=== PATIENT | female | born 1975 | race American Indian/Alaskan Native ===

== ENCOUNTER 2017-02-19 12:40 | Emergency (ER) | payer MEDICAID, OTHER ==
[2017-02-19 12:45] VITALS: BMI 20.3
[2017-02-19 12:47] VITALS: TEMP 98.7
[2017-02-19] MEDS ORDERED: Sodium Chloride 0.9% 1,000 ML IV ONE (13:35)
[2017-02-19] MEDS ORDERED: Sodium Chloride 0.9% 50 ML IV ONE (14:09)
[2017-02-19 14:10] LABS: RBC URINE < 1 /hpf (0-3); URINE BILIRUBIN NEGATIVE (NEGATIVE); URINE BLOOD NEGATIVE (NEGATIVE); URINE COLOR Yellow (YELLOW); URINE GLUCOSE (UA) NORMAL (Normal); URINE KETONE NEGATIVE (NEGATIVE); URINE LEUKOCYTE ESTERASE NEG Leu/uL (Negative); URINE PROTEIN NEGATIVE (NEGATIVE); URINE UROBILINOGEN NORMAL mg/dL (0.2-1.0); WBC URINE 3 /hpf (0-5)
--- NOTE | 2017-02-19 14:13 | CT ---
PROCEDURE: CT HEAD WITHOUT CONTRAST. HISTORY: R/O Bleed COMPARISON: None available. TECHNIQUE: Axial computed tomography images were obtained through the head/brain without intravenous contrast. Radiation dose: Total exam DLP = 799.58 mGy-cm. This CT exam was performed using one or more of the following dose reduction techniques: Automated exposure control, adjustment of the mA and/or kV according to patient size, and/or use of iterative reconstruction technique. FINDINGS: HEMORRHAGE: No intracranial hemorrhage. BRAIN: No mass effect or edema. The silva-white matter differentiation appears intact. Please note that MRI with diffusion imaging is more sensitive in the detection of acute ischemic event. VENTRICLES: No hydrocephalus. CALVARIUM: Unremarkable. PARANASAL SINUSES: Unremarkable as visualized. No significant inflammatory changes. MASTOID AIR CELLS: Unremarkable as visualized. No inflammatory changes. OTHER FINDINGS: None. IMPRESSION: No acute intracranial pathology identified.
[2017-02-19 14:15] LABS: BASO # 0.1 K/uL (0.0-0.2); BASO % 0.9 % (0.0-2.0); EOS # 0.1 K/uL (0.0-0.7); EOS % 0.9 % (0.0-4.0); HEMATOCRIT 40.4 % (34.0-47.0); LYMPH # 1.8 K/uL (1.0-4.3); LYMPH % 18.5 % (20.0-40.0); MEAN CELL VOLUME 80.1 fL (81.0-99.0); MEAN CORPUSCULAR HGB CONC 32.4 g/dL (33.0-37.0); MEAN PLATELET VOLUME 7.7 fL (7.2-11.7); MONO # 0.7 K/uL (0.0-0.8); MONO % 6.8 % (0.0-10.0); RED CELL DISTRIBUTION WIDTH 14.1 % (11.5-14.5); WHITE BLOOD COUNT 9.9 K/uL (4.8-10.8)
[2017-02-19 14:22] LABS: CHLORIDE 100 mmol/L (98-107)
[2017-02-19 14:23] LABS: POTASSIUM 3.7 mmol/L (3.6-5.2); SODIUM 140 mmol/L (132-148)
[2017-02-19 14:25] LABS: ALB/GLOB RATIO 1.2 (1.0-2.1); ALKALINE PHOSPHATASE 61 U/L (38-126); ALT/SGPT 21 U/L (9-52); AST/SGOT 20 U/L (14-36); BILIRUBIN,TOTAL 0.6 mg/dL (0.2-1.3); BLOOD UREA NITROGEN 7 mg/dL (7-17); CARBON DIOXIDE 26 mmol/L (22-30); GFR AFRICAN-AMERICAN > 60; GLUCOSE,RANDOM 86 mg/dL (65-105); TOTAL PROTEIN 8.2 g/dL (6.3-8.3)
[2017-02-19 14:26] LABS: CALCIUM 9.2 mg/dl (8.6-10.4)
--- NOTE | 2017-02-19 14:52 | C.PDOC ---
History Of Present Illness 41 y/o female presents to the Ed with complains of frontal headache x4 days with associated photophobia. Pt denies nausea, vomiting, dizziness, fever or any other complaints. Pt took Excedrin with mild relief. Pt reports history of headaches when younger, states this is worse and she "feels funny". Pt also reports hx HTN, ran out of medications 2 days ago. Time Seen by Provider: 02/19/17 13:31 Chief Complaint (Nursing): Headache History Per: Patient History/Exam Limitations: no limitations Onset/Duration Of Symptoms: Days Current Symptoms Are (Timing): Still Present Severity: Moderate Associated Symptoms: Photophobia. denies: Nausea, Vomiting Recent travel outside of the [place]: No Past Medical History Reviewed: Historical Data, Nursing Documentation, Vital Signs Vital Signs: Last Vital Signs Temp 98.7 F 02/19/17 12:46 Pulse 89 02/19/17 15:19 Resp 20 02/19/17 15:19 BP 145/81 02/19/17 15:19 Pulse Ox 99 02/19/17 17:29 - Medical History PMH: Asthma, HTN Family History: States: CAD, Diabetes, Hypertension - Social History Hx Tobacco Use: Yes Hx Alcohol Use: Yes Hx Substance Use: No - Immunization History Hx Tetanus Toxoid Vaccination: No Hx Influenza Vaccination: No Hx Pneumococcal Vaccination: No Review Of Systems Except As Marked, All Systems Reviewed And Found Negative. Constitutional: Negative for: Fever Eyes: Positive for: Other (photophobia) Gastrointestinal: Negative for: Nausea, Vomiting Neurological: Positive for: Headache. Negative for: Dizziness Physical Exam - Physical Exam Appears: Non-toxic, No Acute Distress Skin: Warm, Dry, No Rash Head: Atraumatic, Normacephalic Eye(s): bilateral: Normal Inspection, PERRL, EOMI Ear(s): Bilateral: Normal Nose: Normal Oral Mucosa: Moist Throat: Normal, No Erythema, No Exudate Neck: Normal ROM, Supple Chest: Symmetrical Cardiovascular: Rhythm Regular Respiratory: Normal Breath Sounds Extremity: Bilateral: Atraumatic Neurological/Psych: Oriented x3, Normal Speech, Normal Cognition, Normal Cranial Nerves, Normal Motor, Normal Sensation Gait: Steady ED Course And Treatment - Laboratory Results Result Diagrams: 02/19/17 14:11 02/19/17 14:11 O2 Sat by Pulse Oximetry: 99 (on RA) Pulse Ox Interpretation: Normal Progress Note: Plan: reglan, toradol, fluids. On reassessment, patient is resting comfortably, is tolerating PO, and pain has improved. HEadache improved. Patient has no neurologic deficit, photophobia, rash, fever, or nuchal rigidity. Patient was instructed to follow up with physician/clinic in 1 -2 days. Disposition - Disposition Referrals: Sylvester Borja MD [Staff Provider] - Disposition: HOME/ ROUTINE Disposition Time: 15:15 Condition: STABLE Additional Instructions: Follow up with primary medical doctor in 1-3 days without fail for further evaluation. Take medications as prescribed. Return to the emergency department at any time if symptoms persist or worsen. Prescriptions: Acetaminophen/Butalbital/Caf [Fioricet] 1 tab PO TID PRN #12 tab PRN Reason: Headache Lisinopril [Zestril] 10 mg PO DAILY #14 tab Instructions: Acute Headache (ED) - Clinical Impression Clinical Impression: Headache, HTN (hypertension) - PA / DIETETIC TECHNICIAN REGISTERED / Resident Statement MD/DO has reviewed & agrees with the documentation as recorded. - Scribe Statement The provider has reviewed the documentation as recorded by the Adriannaibjaziel Osborn All medical record entries made by the Robby were at my direction and personally dictated by me. I have reviewed the chart and agree that the record accurately reflects my personal performance of the history, physical exam, medical decision making, and the department course for this patient. I have also personally directed, reviewed, and agree with the discharge instructions and disposition.
[2017-02-19 15:20] VITALS: BP 145/81; PULSE 89; RESP 20
[2017-02-19 15:34] VITALS: O2SAT 99
== END 2017-02-19 16:02 | disposition home or self-care (01) ==
LOC: C.ER 12:40
DX: I10 Essential (primary) hypertension (principal); R51 Headache
CPT/HCPCS: 70450; 80053; 81001; 82948; 84703; 85025; 96361; 96374; 96375; 99285; J1885; J2765; J7040

== ENCOUNTER 2017-05-02 08:53 | Inpatient (IN) | payer OTHER ==
[2017-05-02 08:53] VITALS: BMI 20.3
[2017-05-02] MEDS ORDERED: Belladonna-Phenobarbital PO STA (09:30)
[2017-05-02] MEDS ORDERED: Lidocaine 2% Viscous 100 ml PO STA (09:30)
[2017-05-02] MEDS ORDERED: Aluminum Hydroxide/Magnesium Hydroxide Susp (30 mL) PO STA (09:30)
[2017-05-02] MEDS ORDERED: Sodium Chloride 0.9% 1,000 ML IV ONE ×2 (09:30→14:37)
[2017-05-02] MEDS ORDERED: Aluminum Hydroxide/Magnesium Hydroxide Susp (30 mL) ONE (09:41)
[2017-05-02] MEDS ORDERED: Belladonna-Phenobarbital ONE (09:41)
[2017-05-02] MEDS ORDERED: Sodium Chloride 0.9% 1,000 ML ONE ×2 (09:41→14:49)
[2017-05-02 09:53] LABS: BASO # 0.1 K/uL (0.0-0.2); BASO % 0.6 % (0.0-2.0); EOS % 0.2 % (0.0-4.0); HEMATOCRIT 38.5 % (34.0-47.0); LYMPH # 0.8 K/uL (1.0-4.3); LYMPH % 6.6 % (20.0-40.0); MEAN CELL VOLUME 80.1 fL (81.0-99.0); MEAN CORPUSCULAR HEMOGLOBIN 26.2 pg (27.0-31.0); MEAN CORPUSCULAR HGB CONC 32.7 g/dL (33.0-37.0); MEAN PLATELET VOLUME 7.6 fL (7.2-11.7); MONO # 0.4 K/uL (0.0-0.8); MONO % 3.2 % (0.0-10.0); PLATELET COUNT 347 K/uL (130-400); RED CELL DISTRIBUTION WIDTH 13.6 % (11.5-14.5); WHITE BLOOD COUNT 11.5 K/uL (4.8-10.8)
[2017-05-02 10:03] LABS: RBC URINE 3 /hpf (0-3); URINE BILIRUBIN NEGATIVE (NEGATIVE); URINE BLOOD NEGATIVE (NEGATIVE); URINE COLOR Yellow (YELLOW); URINE GLUCOSE (UA) NORMAL (Normal); URINE KETONE NEGATIVE (NEGATIVE); URINE LEUKOCYTE ESTERASE NEG Leu/uL (Negative); URINE PROTEIN NEGATIVE (NEGATIVE); URINE UROBILINOGEN NORMAL mg/dL (0.2-1.0); WBC URINE 7 /hpf (0-5)
[2017-05-02 10:04] LABS: CHLORIDE 105 mmol/L (98-107); POTASSIUM 3.8 mmol/L (3.6-5.2); SODIUM 139 mmol/L (132-148)
[2017-05-02 10:06] LABS: ALB/GLOB RATIO 1.1 (1.0-2.1); AST/SGOT 22 U/L (14-36); BILIRUBIN,TOTAL 0.6 mg/dL (0.2-1.3); CARBON DIOXIDE 25 mmol/L (22-30); GFR AFRICAN-AMERICAN > 60; TOTAL PROTEIN 7.8 g/dL (6.3-8.3)
[2017-05-02 10:07] LABS: ALKALINE PHOSPHATASE 75 U/L (38-126); ALT/SGPT 21 U/L (9-52); BLOOD UREA NITROGEN 9 mg/dL (7-17); CALCIUM 9.5 mg/dl (8.6-10.4); GLUCOSE,RANDOM 104 mg/dL (65-105)
[2017-05-02 10:56] LABS: EOSINOPHIL 1 % (0-4); NEUTROPHIL 95 % (50-75); TOTAL CELLS COUNTED 100
--- NOTE | 2017-05-02 10:56 | US ---
HISTORY: Abdominal pain COMPARISON: None. TECHNIQUE: Sonographic evaluation of the right upper quadrant of the abdomen. FINDINGS: LIVER: Measures 15.9 cm in length. Normal echogenicity of the liver parenchyma. No mass. No intrahepatic bile duct dilatation. GALLBLADDER: There are multiple gallstones and sludge within the gallbladder. No pericholecystic fluid or positive sonographic Anguiano's sign. Tiny echogenic foci in the gallbladder wall could represent adenomyomatosis. COMMON BILE DUCT: Measures 4.4 mm. No stones. No dilatation. PANCREAS: Unremarkable as visualized. No mass. No ductal dilatation. RIGHT KIDNEY: Measures 11.2 cm in length. Normal echogenicity. No calculus, mass, or hydronephrosis. AORTA: No aneurysmal dilatation. IVC: Unremarkable. OTHER FINDINGS: None . IMPRESSION: Cholelithiasis and gallbladder sludge. No sonographic evidence for acute cholecystitis.
--- NOTE | 2017-05-02 11:37 | C.PDOC ---
History Of Present Illness 41 y/o female presents to ED with complaints of abdominal pain, diarrhea and vomiting since yesterday. Patient states she thought pain was from gas and took home remedies with no improvement. Pain is rated a 10/10 and is mostly in the epigastric area. Patient also reports multiple episodes of vomiting and "liquidly" diarrhea. Patient denies fever, chills, TANG, back pain or any other complaints at this time. Time Seen by Provider: 05/02/17 09:15 Chief Complaint (Nursing): Abdominal Pain History Per: Patient History/Exam Limitations: no limitations Onset/Duration Of Symptoms: Days Current Symptoms Are (Timing): Still Present Location Of Pain/Discomfort: Epigastric Associated Symptoms: Vomiting, Diarrhea. denies: Fever, Chills, Back Pain Past Medical History Reviewed: Historical Data, Nursing Documentation, Vital Signs Vital Signs: Last Vital Signs Temp 99.0 F 05/02/17 14:30 Pulse 58 L 05/02/17 14:30 Resp 16 05/02/17 14:30 BP 170/84 H 05/02/17 14:30 Pulse Ox 100 05/02/17 14:50 - Medical History PMH: Asthma, HTN Family History: States: CAD, Diabetes, Hypertension - Social History Hx Tobacco Use: Yes Hx Alcohol Use: Yes Hx Substance Use: No - Immunization History Hx Tetanus Toxoid Vaccination: No Hx Influenza Vaccination: No Hx Pneumococcal Vaccination: No Review Of Systems Except As Marked, All Systems Reviewed And Found Negative. Constitutional: Negative for: Fever, Chills Gastrointestinal: Positive for: Vomiting, Abdominal Pain, Diarrhea Genitourinary: Negative for: Dysuria Musculoskeletal: Negative for: Back Pain Skin: Negative for: Rash Neurological: Negative for: Weakness, Headache, Dizziness Physical Exam - Physical Exam Appears: In Acute Distress Skin: Normal Color, Warm Head: Atraumatic, Normacephalic Oral Mucosa: Moist Throat: Normal Cardiovascular: Rhythm Regular, No Murmur Respiratory: Normal Breath Sounds, No Rales, No Rhonchi, No Wheezing Gastrointestinal/Abdominal: Soft, Tenderness (Epigastric and RUQ ), No Guarding , No Rebound Extremity: Normal ROM, Capillary Refill (<2 seconds) Neurological/Psych: Oriented x3 ED Course And Treatment - Laboratory Results Result Diagrams: 05/02/17 09:50 05/02/17 09:50 ECG Rhythm: Sinus Rhythm ECG Interpretation: Normal Rate From EC (BPM) O2 Sat by Pulse Oximetry: 100 (RA) Pulse Ox Interpretation: Normal Medical Decision Making Medical Decision Making: Labs were done US depicted Gallstone but no acute cholecystitis IV fluids given and Pepsid Patient will be re-evaluated Patient with intractable abdominal pain, requiring multiple doses of morphine. Most-likely gastritis, but patient also has gallstones. Will hospitalize with hospitalist service. Disposition - Disposition Disposition: HOSPITALIZED Disposition Time: 14:47 Condition: GUARDED - Clinical Impression Clinical Impression: Gastritis, Gallstones, Abdominal pain - Scribe Statement The provider has reviewed the documentation as recorded by the Scribe Sariah Hebert All medical record entries made by the Scribe were at my direction and personally dictated by me. I have reviewed the chart and agree that the record accurately reflects my personal performance of the history, physical exam, medical decision making, and the department course for this patient. I have also personally directed, reviewed, and agree with the discharge instructions and disposition. Decision To Admit - Pt Status Changed To: Hospital Disposition Of: Observation - . Bed Request Type: Regular Admitting Physician: Adelfo Baptiste Patient Diagnosis: Gastritis, Gallstones, Abdominal pain
[2017-05-02] MEDS ORDERED: Morphine 4 MG/ML VIAL ONE (12:22)
[2017-05-02] MEDS ORDERED: Apap-Butalbital-Caffeine 325-50-40mg Tab PO PRN (15:04)
--- NOTE | 2017-05-02 15:27 | CP.PCM.HP ---
<Gloria Hicks - Last Filed: 05/02/17 16:15> History of Present Illness - History of Present Illness History of Present Illness: CC: "my stomach really hurts" HPI: Patient is a 41 year old female with PMHx of GERD, asthma, HTN and anemia presenting for intractable abdominal pain, nausea and vomiting. Patient says she woke up at 3am with 9/10, burning "gas pain." She put baking soda in warm water which she says usually helps her. She drank this, but it did not help. She tried prilosec and pepto bismol but neither helped. The pain started radiating up into her chest. Patient decided to come to ER around 7 am because the pain would not go away and kept getting worse. Patient also began to feel nauseous. Patient vomited four times in ER; last time was 2-3 hours ago. Vomit was food colored and the last one was greenish like bile. Patient had fried chicken and a beef justin last night at 9pm for dinner. No one else had the same food as her. Patient reports being very thirsty now. Patient also reports being constipated for 3 days, but had a small bowel movement this AM. Patient denies fever, chills, diaphoresis, weakness, headache, vision change, sore throat, CP, palpitations, cough, SOB, hematemesis, diarrhea, hematochezia, melena, dysuria, dyspareunia, back pain, rash, recent travel, sick contacts, weight change. PMD: Dr. Marcin Borja Allergies: NKDA PMHx: as above PSHx: denies Family History: Mom had first stroke at 50 and passed of another stroke at 70, Sister had throat CA at 47 Social Hx: smoked 7-8 cigarettes per day for past 20 years, drinks ETOH once every two months, denies illicit drug use, works as a remodel associate at [employer], has been sexually active with one man for the past 4 years [employer] Hx: menses lasts 5-7 days, normal blood loss, every month, last menses ended April 22 Present on Admission - Present on Admission Any Indicators Present on Admission: No Review of Systems - Constitutional Constitutional: absent: Chills, Fever, Weight Loss, Weakness - EENT Eyes: absent: Change in Vision Ears: absent: Dizziness Nose/Mouth/Throat: absent: Sore Throat - Cardiovascular Cardiovascular: absent: Chest Pain, Palpitations - Respiratory Respiratory: absent: Cough, Dyspnea - Gastrointestinal Gastrointestinal: Abdominal Pain, Constipation, Heartburn, Nausea, Vomiting. absent: Coffee Ground Emesis, Diarrhea, Hematemesis, Hematochezia, Melena - Genitourinary Genitourinary: absent: Dysuria, Urinary Frequency - Reproductive: Female Reproductive:Female: Menses 1-7 Days, Normal Menses. absent: Heavy Menses, Abnormal Vaginal Bleeding, Dyspareunia - Menstruation Menstruation: Normal Menses - Musculoskeletal Musculoskeletal: absent: Back Pain - Integumentary Integumentary: absent: Lesions, Rash - Neurological Neurological: absent: Dizziness, Headaches - Endocrine Endocrine: absent: Fatigue, Palpitations - Hematologic/Lymphatic Hematologic: absent: Easy Bleeding, Easy Bruising Past Patient History - Past Medical History & Family History Past Medical History?: Yes Pertinent Family History: Mom had first stroke at 50 and passed of another stroke at 70, Sister had throat CA at 47 - Past Social History Smoking Status: Light Smoker < 10 Cigarettes Daily Occupation: remodel associate at [employer] Alcohol: Occasional Drugs: Denies Home Situation {Lives}: With Family - CARDIAC Hx Hypertension: Yes - PULMONARY Hx Asthma: Yes - PSYCHIATRIC Hx Substance Use: No - SURGICAL HISTORY Hx Surgeries: No - ANESTHESIA Hx Anesthesia: No Meds Allergies/Adverse Reactions: Allergies Allergy/AdvReac Type Severity Reaction Status Date / Time No Known Allergies Allergy Verified 05/02/17 08:58 Physical Exam - Constitutional Appears: Non-toxic, No Acute Distress - Head Exam Head Exam: NORMAL INSPECTION - Eye Exam Eye Exam: EOMI - ENT Exam ENT Exam: Mucous Membranes Moist - Respiratory Exam Respiratory Exam: Clear to Auscultation Bilateral, NORMAL BREATHING PATTERN. absent: Accessory Muscle Use, Rales, Rhonchi, Wheezes, Respiratory Distress - Cardiovascular Exam Cardiovascular Exam: REGULAR RHYTHM, +S1, +S2. absent: Gallop, Rubs, Systolic Murmur - GI/Abdominal Exam GI & Abdominal Exam: Normal Bowel Sounds, Soft, Tenderness (epigastric and RUQ) . absent: Distended, Firm, Guarding - Extremities Exam Extremities exam: Negative for: pedal edema - Back Exam Back exam: absent: CVA tenderness (L), CVA tenderness (R) - Neurological Exam Neurological exam: Alert, Oriented x3 - Psychiatric Exam Psychiatric exam: Normal Affect, Normal Mood - Skin Skin Exam: Normal Color, Warm Results - Vital Signs Recent Vital Signs: Last Vital Signs Temp 99.0 F 05/02/17 14:30 Pulse 58 L 05/02/17 14:30 Resp 16 05/02/17 14:30 BP 170/84 H 05/02/17 14:30 Pulse Ox 100 05/02/17 14:57 - Labs Result Diagrams: 05/02/17 09:50 05/02/17 09:50 Assessment & Plan - Assessment and Plan (Free Text) Assessment: Epigastric Pain Protonix 40mg IVP Q12H Morphine 2mg IVP Q3H PRN pain May need GI referral as outpatient for outpatient EGd Nausea and Vomiting Likely secondary to viral gastroenteritis 1/2NS @ 100cc/hr Zofran 4mg IVP Q6H PRN nausea Full liquid bland diet No obstruction seen on obstructive series - f/u official report Cholelithiasis Abdominal US - cholelithiasis and gallbladder sludge; negative sonographic lopez's sign (please see full report) F/U outpatient History of asthma Albuterol Q6H PRN SOB History of HTN Lisinopril 10mg PO daily (home med) Uncontrolled on admission however patient had not taken her lisinopril yet Monitor Prophylaxis Protonix 40mg IVP Q12H SCDs Activity as tolerated <Adelfo Baptiste H - Last Filed: 05/03/17 07:33> Results - Vital Signs Recent Vital Signs: Last Vital Signs Temp 98.0 F 05/02/17 23:19 Pulse 62 05/02/17 23:19 Resp 20 05/02/17 23:19 BP 161/83 H 05/02/17 23:19 Pulse Ox 100 05/02/17 23:19 - Labs Result Diagrams: 05/02/17 09:50 05/02/17 09:50 Attending/Attestation - Attestation I have personally seen and examined this patient.: Yes I have fully participated in the care of the patient.: Yes I have reviewed all pertinent clinical information: Yes Notes (Text): Medical attending: Patient was seen and examined by me. Agree with the above note by the resident. The patient was not in any acute distress when we saw her. It is possible she could have a viral illness from the food or some food contaminat or toxin she consumed. At that time she did not have a fever and WBC were stable. If there are changes we can add abx, but for now continue with IVF and conservative measures. The LFT, T yas, Lipase were stable. thank you Adelfo Baptiste
--- NOTE | 2017-05-02 15:37 | RAD ---
PROCEDURE: Radiographs of the chest and abdomen (obstructive series) HISTORY: abd pain COMPARISON: No prior. TECHNIQUE: AP radiograph of the chest, with upright and supine radiographs of the abdomen. FINDINGS: CHEST: Lungs: Clear. Cardiovascular: Normal size heart. No pulmonary vascular congestion. Pleura: No pleural fluid. No pneumothorax. Other findings: None. ABDOMEN AND PELVIS: Bowel: Nonobstructive bowel-gas pattern. No evidence of mechanical obstruction. Free air: None. Bones: Unremarkable. Other findings: None. IMPRESSION: Nonobstructive bowel gas pattern. Clear lungs.
[2017-05-02] MEDS ORDERED: Albuterol 0.083% Inhal Sol (2.5 mg/3 mL) UD INH PRN (16:15)
[2017-05-02] MEDS: Sodium Chloride 0.45% 1,000 ML IV SCH (17:39)
[2017-05-03] MEDS: Sodium Chloride 0.45% 1,000 ML IV SCH ×4 (02:28→23:38)
[2017-05-03 08:34] LABS: BASO # 0.1 K/uL (0.0-0.2); BASO % 0.7 % (0.0-2.0); EOS # 0.1 K/uL (0.0-0.7); EOS % 0.8 % (0.0-4.0); HEMATOCRIT 35.9 % (34.0-47.0); LYMPH # 1.5 K/uL (1.0-4.3); LYMPH % 14.7 % (20.0-40.0); MEAN CELL VOLUME 80.2 fL (81.0-99.0); MEAN CORPUSCULAR HEMOGLOBIN 26.4 pg (27.0-31.0); MEAN CORPUSCULAR HGB CONC 32.9 g/dL (33.0-37.0); MEAN PLATELET VOLUME 8.4 fL (7.2-11.7); MONO # 0.8 K/uL (0.0-0.8); MONO % 8.1 % (0.0-10.0); RED CELL DISTRIBUTION WIDTH 13.3 % (11.5-14.5); WHITE BLOOD COUNT 10.2 K/uL (4.8-10.8)
[2017-05-03 08:46] LABS: CHLORIDE 105 mmol/L (98-107)
[2017-05-03 08:47] LABS: POTASSIUM 3.6 mmol/L (3.6-5.2); SODIUM 137 mmol/L (132-148)
[2017-05-03 08:49] LABS: ALB/GLOB RATIO 1.1 (1.0-2.1); ALKALINE PHOSPHATASE 67 U/L (38-126); AST/SGOT 16 U/L (14-36); BILIRUBIN,TOTAL 0.8 mg/dL (0.2-1.3); CARBON DIOXIDE 23 mmol/L (22-30); GFR AFRICAN-AMERICAN > 60; TOTAL PROTEIN 7.1 g/dL (6.3-8.3)
[2017-05-03 08:50] LABS: ALT/SGPT 18 U/L (9-52); BLOOD UREA NITROGEN 5 mg/dL (7-17); CALCIUM 8.8 mg/dl (8.6-10.4); GLUCOSE,RANDOM 87 mg/dL (65-105)
--- NOTE | 2017-05-03 10:15 | CP.PCM.PN ---
<Gloria Hicks Geri - Last Filed: 05/03/17 10:13> Subjective - Date & Time of Evaluation Date of Evaluation: 05/03/17 Time of Evaluation: 06:45 - Subjective Subjective: PGY2 Medicine Note - Dr. Baptiste's service: Patient seen and examined at bedside this AM. Patient reports continued epigastric pain. She says it hurts even with morphine. Patient also vomited once yesterday on floors after 4 times in ER. Patient reports some SOB due to pain with deep breaths. Patient has not had a bowel movement since yesterday morning. Patient tolerating jello. Patient denies fever, chills, chest pain, diarrhea, dysuria. Objective - Vital Signs/Intake and Output Vital Signs (last 24 hours): Temp Pulse Resp BP Pulse Ox 98.3 F 68 17 181/79 H 99 05/03/17 07:40 05/03/17 07:40 05/03/17 07:40 05/03/17 10:01 05/03/17 07:40 Intake and Output: 05/03/17 05/03/17 06:59 18:59 Intake Total 1040 Balance 1040 - Medications Medications: Current Medications Acetaminophen/Butalbital/Caffeine (Fioricet) 1 tab PO TID PRN PRN Reason: Headache Albuterol Sulfate (Albuterol 0.083% Inhal Julissa (2.5 Mg/3 Ml) Ud) 2.5 mg INH RQ6 PRN PRN Reason: Shortness of Breath Amlodipine Besylate (Norvasc) [address] [facility] Last Admin: 05/03/17 09:00 Dose: 5 mg Sodium Chloride (Sodium Chloride 0.45%) 1,000 mls @ 100 mls/hr IV .Q10H [facility] Last Admin: 05/03/17 05:23 Dose: 100 mls/hr Lisinopril (Zestril) [address] [facility] Last Admin: 05/03/17 09:02 Dose: 10 mg Morphine Sulfate (Morphine) 3 mg IVP Q3H PRN PRN Reason: Pain, moderate (4-7) Ondansetron HCl (Zofran Inj) 4 mg IVP Q6 PRN PRN Reason: Nausea/Vomiting Last Admin: 05/02/17 21:39 Dose: 4 mg Pantoprazole Sodium (Protonix Inj) 40 mg IVP Q12H [facility] Last Admin: 05/03/17 09:02 Dose: 40 mg Pneumococcal Polyvalent Vaccine (Pneumovax 23 Vaccine) 0.5 ml IM .ONCE ONE Stop: 05/06/17 10:01 - Labs Labs: 05/03/17 08:14 05/03/17 08:14 - Constitutional Appears: Non-toxic, No Acute Distress - Head Exam Head Exam: NORMAL INSPECTION - Eye Exam Eye Exam: EOMI - ENT Exam ENT Exam: Mucous Membranes Moist - Respiratory Exam Respiratory Exam: Clear to Ausculation Bilateral, NORMAL BREATHING PATTERN. absent: Rales, Rhonchi, Wheezes - Cardiovascular Exam Cardiovascular Exam: REGULAR RHYTHM, +S1, +S2. absent: Gallop, Rubs - GI/Abdominal Exam GI & Abdominal Exam: Distended, Guarding, Soft, Tenderness (epigastric and RUQ) , Normal Bowel Sounds. absent: Firm - Extremities Exam Extremities Exam: absent: Pedal Edema - Neurological Exam Neurological Exam: Alert, Awake, Oriented x3 - Psychiatric Exam Psychiatric exam: Normal Affect, Normal Mood - Skin Skin Exam: Normal Color, Warm Assessment and Plan - Assessment and Plan (Free Text) Assessment: Epigastric Pain Protonix 40mg IVP Q12H Morphine 2mg IVP Q3H PRN pain --> increased to 3mg Q3H F/U Abdominal/Pelvis CT May need GI referral as outpatient for outpatient EGD Nausea and Vomiting Likely secondary to viral gastroenteritis 1/2NS @ 100cc/hr Zofran 4mg IVP Q6H PRN nausea Full liquid bland diet No obstruction seen on obstructive series - f/u official report Cholelithiasis Abdominal US - cholelithiasis and gallbladder sludge; negative sonographic lopez's sign (please see full report) F/U outpatient History of asthma Albuterol Q6H PRN SOB History of HTN Lisinopril 10mg PO daily (home med) Uncontrolled on admission however patient had not taken her lisinopril yet Monitor Prophylaxis Protonix 40mg IVP Q12H SCDs Activity as tolerated <Adelfo Baptiste H - Last Filed: 05/03/17 11:53> Objective - Vital Signs/Intake and Output Vital Signs (last 24 hours): Temp Pulse Resp BP Pulse Ox 98.3 F 68 17 181/79 H 99 05/03/17 07:40 05/03/17 07:40 05/03/17 07:40 05/03/17 10:01 05/03/17 07:40 Intake and Output: 05/03/17 05/03/17 06:59 18:59 Intake Total 1040 Balance 1040 - Medications Medications: Current Medications Acetaminophen/Butalbital/Caffeine (Fioricet) 1 tab PO TID PRN PRN Reason: Headache Albuterol Sulfate (Albuterol 0.083% Inhal Julissa (2.5 Mg/3 Ml) Ud) 2.5 mg INH RQ6 PRN PRN Reason: Shortness of Breath Amlodipine Besylate (Norvasc) [address] [facility] Last Admin: 05/03/17 09:00 Dose: 5 mg Sodium Chloride (Sodium Chloride 0.45%) 1,000 mls @ 100 mls/hr IV .Q10H [facility] Last Admin: 05/03/17 05:23 Dose: 100 mls/hr Lisinopril (Zestril) [address] [facility] Last Admin: 05/03/17 09:02 Dose: 10 mg Morphine Sulfate (Morphine) 3 mg IVP Q3H PRN PRN Reason: Pain, moderate (4-7) Last Admin: 05/03/17 10:16 Dose: 3 mg Ondansetron HCl (Zofran Inj) 4 mg IVP Q6 PRN PRN Reason: Nausea/Vomiting Last Admin: 05/02/17 21:39 Dose: 4 mg Pantoprazole Sodium (Protonix Inj) [address] [facility] Last Admin: 05/03/17 09:02 Dose: 40 mg Pneumococcal Polyvalent Vaccine (Pneumovax 23 Vaccine) 0.5 ml IM .ONCE ONE Stop: 05/06/17 10:01 - Labs Labs: 05/03/17 08:14 05/03/17 08:14 Attending/Attestation - Attestation I have personally seen and examined this patient.: Yes I have fully participated in the care of the patient.: Yes I have reviewed all pertinent clinical information, including history, physical exam and plan: Yes Notes (Text): 05/03/17 11:51 Medical Attending: Patient was seen and examined by me. Agree with the above note by the resident. She was still having pain and difficulty eating. Will check CT of the abd and pelvis with PO and IV contrast. The LFT, T yas, Lipase are stable. No fevers and no WBC. Possible food toxin or viral illness. No diarrhea 05/03/17 11:53
[2017-05-03] MEDS ORDERED: Iohexol 240 (50 ml) PO ONE (11:45)
[2017-05-03] MEDS ORDERED: Iohexol 300 100 ML IJ ONE (13:59)
--- NOTE | 2017-05-03 15:00 | CT ---
PROCEDURE: CT Abdomen and Pelvis with contrast HISTORY: Abdominal pain COMPARISON: Right upper quadrant ultrasound from 05/02/2017 TECHNIQUE: CT scan of the abdomen and pelvis was performed after intravenous administration of contrast. Oral contrast was administered. Coronal and sagittal reformatted images were obtained. Contrast dose: 100 mL Omnipaque 300 Radiation dose: Total exam DLP = 258.62 mGy-cm. This CT exam was performed using one or more of the following dose reduction techniques: Automated exposure control, adjustment of the mA and/or kV according to patient size, and/or use of iterative reconstruction technique. FINDINGS: LOWER THORAX: The lung bases are clear. LIVER: The liver is normal in size and there is homogeneous enhancement without focal mass. There is mild intrahepatic biliary ductal dilatation. GALLBLADDER AND BILE DUCTS: And suspect cholelithiasis. The gallbladder is distended and there is interval development of moderate pericholecystic fluid. There are probable noncalcified gallstones in the region of the neck of the gallbladder. No calcified gallstones are visualized. There is mild diffuse dilatation of the common bile duct. PANCREAS: The pancreas is normal in size and there is homogeneous enhancement. There is mild prominence of the pancreatic duct. SPLEEN: The spleen is normal in size and there is homogeneous enhancement without focal mass. ADRENALS: Both adrenal glands are normal in size without discrete nodule. KIDNEYS AND URETERS: Both kidneys are normal in size and there is homogeneous enhancement without focal mass or hydronephrosis. VASCULATURE: No aortic aneurysm. BOWEL: The small bowel loops are normal in caliber. There is moderate amount of stool scattered throughout the colon. APPENDIX: Normal appendix. PERITONEUM: There is small amount of free fluid in the pelvis. No free air. LYMPH NODES: No enlarged lymph nodes. BLADDER: Partially decompressed. REPRODUCTIVE: The uterus is normal in size. BONES: No acute fracture. OTHER FINDINGS: None. IMPRESSION: Interval development of moderate pericholecystic fluid, distended gallbladder and suspect noncalcified cholelithiasis. Findings are concerning for acute calculus cholecystitis. Clinical follow-up is advised. Important findings were discussed with Narayan fagan in 04/2018 at 2:50 p.m.
--- NOTE | 2017-05-03 15:25 | CP.PCM.CON ---
History of Present Illness - History of Present Illness History of Present Illness: Surgery: Dr. Willett CC: Abd pain HPI: 41F w. pmh of HTN and asthma presents to ED w. acute onset abd pain starting Thursday 3AM. Pt states that she has never experienced this pain before. It is constant and described as a cramp. Pain is in the epigastric/RUQ area. Morphine makes the pain better. Activity makes the pain worse. Pt reports nausea and vomiting yesterday, only nausea today. No diarrhea. No F/C, no TANG/ blurred vision, occasional CP when pain is most severe. no palpitations. no SOB/ cough. No hematuria/dysuria. CT and U/S have findings consistent w. cholecystitis PMH: HTN and asthma PSH: none Meds: MAR reviewed NKDA SOcial: +cigarettes, no ETOH/drugs Fhx: Non-contributory Review of Systems - Review of Systems All systems: reviewed and no additional remarkable complaints except (HPI) Past Patient History - Past Medical History & Family History Past Medical History?: Yes - Past Social History Smoking Status: Light Smoker < 10 Cigarettes Daily - CARDIAC Hx Hypertension: Yes - PULMONARY Hx Asthma: Yes - MUSCULOSKELETAL/RHEUMATOLOGICAL Hx Falls: No - PSYCHIATRIC Hx Substance Use: No - SURGICAL HISTORY Hx Surgeries: No - ANESTHESIA Hx Anesthesia: Yes Hx Anesthesia Reactions: No Hx Malignant Hyperthermia: No Meds Allergies/Adverse Reactions: Allergies Allergy/AdvReac Type Severity Reaction Status Date / Time No Known Allergies Allergy Verified 05/02/17 08:58 - Medications Medications: Current Medications Acetaminophen/Butalbital/Caffeine (Fioricet) 1 tab PO TID PRN PRN Reason: Headache Albuterol Sulfate (Albuterol 0.083% Inhal Julissa (2.5 Mg/3 Ml) Ud) 2.5 mg INH RQ6 PRN PRN Reason: Shortness of Breath Amlodipine Besylate (Norvasc) 5 mg PO DAILY [facility] Last Admin: 05/03/17 09:00 Dose: 5 mg Sodium Chloride (Sodium Chloride 0.45%) 1,000 mls @ 100 mls/hr IV .Q10H [facility] Last Admin: 05/03/17 13:39 Dose: Not Given Metronidazole (Flagyl) 500 mg in 100 mls @ 100 mls/hr IVPB Q8 [facility] Piperacillin Sod/Tazobactam (Sod 3.375 gm/ Sodium Chloride) 100 mls @ 200 mls/ hr IVPB Q6H [facility] Lisinopril (Zestril) 10 mg PO DAILY [facility] Last Admin: 05/03/17 09:02 Dose: 10 mg Morphine Sulfate (Morphine) 3 mg IVP Q3H PRN PRN Reason: Pain, moderate (4-7) Last Admin: 05/03/17 13:05 Dose: 3 mg Ondansetron HCl (Zofran Inj) 4 mg IVP Q6 PRN PRN Reason: Nausea/Vomiting Last Admin: 05/02/17 21:39 Dose: 4 mg Pantoprazole Sodium (Protonix Inj) 40 mg IVP Q12H [facility] Last Admin: 05/03/17 09:02 Dose: 40 mg Pneumococcal Polyvalent Vaccine (Pneumovax 23 Vaccine) 0.5 ml IM .ONCE ONE Stop: 05/06/17 10:01 Physical Exam - Constitutional Appears: Non-toxic, No Acute Distress - Head Exam Head Exam: ATRAUMATIC, NORMOCEPHALIC - Eye Exam Eye Exam: EOMI. absent: Scleral icterus - ENT Exam ENT Exam: Mucous Membranes Moist, Normal External Ear Exam - Neck Exam Neck exam: Positive for: Full Rom - Respiratory Exam Respiratory Exam: NORMAL BREATHING PATTERN. absent: Accessory Muscle Use, Respiratory Distress - GI/Abdominal Exam GI & Abdominal Exam: Soft, Tenderness (epigastric/RUQ, + Anguiano). absent: Distended, Firm, Guarding, Rebound, Rigid - Extremities Exam Extremities exam: Negative for: calf tenderness, pedal edema - Neurological Exam Neurological exam: Alert, Oriented x3 Results - Vital Signs Recent Vital Signs: Last Vital Signs Temp 98.3 F 05/03/17 07:40 Pulse 68 05/03/17 07:40 Resp 17 05/03/17 07:40 BP 181/79 H 05/03/17 10:01 Pulse Ox 99 05/03/17 07:40 - Labs Result Diagrams: 05/03/17 08:14 05/03/17 08:14 Labs: Laboratory Results - last 24 hr 05/03/17 05/03/17 08:14 08:14 WBC 10.2 RBC 4.48 Hgb 11.8 Hct 35.9 MCV 80.2 L MCH 26.4 L MCHC 32.9 L RDW 13.3 Plt Count 329 MPV 8.4 Neut % (Auto) 75.7 H Lymph % (Auto) 14.7 L Nobles % (Auto) 8.1 Eos % (Auto) 0.8 Baso % (Auto) 0.7 Neut # 7.7 H Lymph # 1.5 Nobles # 0.8 Eos # 0.1 Baso # 0.1 Sodium 137 Potassium 3.6 Chloride 105 Carbon Dioxide 23 Anion Gap 12 BUN 5 L Creatinine 0.7 Est GFR ( Amer) > 60 Est GFR (Non-Af Amer) > 60 Random Glucose 87 Calcium 8.8 Total Bilirubin 0.8 AST 16 ALT 18 Alkaline Phosphatase 67 Total Protein 7.1 Albumin 3.7 Globulin 3.4 Albumin/Globulin Ratio 1.1 - Imaging and Cardiology CT scan - abdomen Status: Image reviewed by me, Report reviewed by me US - abdomen Status: Image reviewed by me, Report reviewed by me Assessment & Plan - Assessment and Plan (Free Text) Assessment: 41F w. cholecystitis -Pt will need lap damian, will discuss OR timing w. Dr. Willett -grant meds -abx -zofran -IVF -d/w attending Valerie PGY2
[2017-05-03] MEDS ORDERED: Ciprofloxacin 400mg/200ml D5W 400 MG/200 ML BAG IVPB SCH (15:30)
[2017-05-03] MEDS: Piperacillin/Tazobact 3.375 GM in Sodium Chloride 100 ML IVPB SCH ×2 (16:28→21:39)
[2017-05-03] MEDS: metroNIDAZOLE IV 500 mg/100 ml 500 MG/100 ML BAG IVPB SCH ×2 (17:14→23:39)
--- NOTE | 2017-05-03 17:42 | RAD ---
HISTORY: pre-op COMPARISON: No prior. FINDINGS: LUNGS: The lungs are well inflated and clear. PLEURA: No significant pleural effusion identified, no pneumothorax apparent. CARDIOVASCULAR: Normal. OSSEOUS STRUCTURES: No significant abnormalities. VISUALIZED UPPER ABDOMEN: Normal. OTHER FINDINGS: None. IMPRESSION: No active pulmonary disease.
[2017-05-04] MEDS: Sodium Chloride 0.45% 1,000 ML IV SCH ×3 (03:19→19:07)
[2017-05-04] MEDS: Piperacillin/Tazobact 3.375 GM in Sodium Chloride 100 ML IVPB SCH ×4 (04:08→23:28)
[2017-05-04] MEDS: metroNIDAZOLE IV 500 mg/100 ml 500 MG/100 ML BAG IVPB SCH (05:07)
[2017-05-04 07:39] LABS: BASO # 0.1 K/uL (0.0-0.2); BASO % 0.7 % (0.0-2.0); EOS % 0.3 % (0.0-4.0); HEMATOCRIT 37.7 % (34.0-47.0); LYMPH # 1.2 K/uL (1.0-4.3); LYMPH % 10.9 % (20.0-40.0); MEAN CELL VOLUME 80.3 fL (81.0-99.0); MEAN CORPUSCULAR HEMOGLOBIN 26.3 pg (27.0-31.0); MEAN CORPUSCULAR HGB CONC 32.8 g/dL (33.0-37.0); MEAN PLATELET VOLUME 8.3 fL (7.2-11.7); MONO # 1.1 K/uL (0.0-0.8); MONO % 9.8 % (0.0-10.0); NRBC % 0.1 % (0.0-2.0); RED CELL DISTRIBUTION WIDTH 13.4 % (11.5-14.5); WHITE BLOOD COUNT 10.8 K/uL (4.8-10.8)
[2017-05-04 07:40] LABS: CHLORIDE 100 mmol/L (98-107); POTASSIUM 3.6 mmol/L (3.6-5.2); SODIUM 134 mmol/L (132-148)
[2017-05-04 07:43] LABS: ALB/GLOB RATIO 1.1 (1.0-2.1); ALKALINE PHOSPHATASE 72 U/L (38-126); ALT/SGPT 19 U/L (9-52); AST/SGOT 15 U/L (14-36); BILIRUBIN,TOTAL 1.1 mg/dL (0.2-1.3); BLOOD UREA NITROGEN 8 mg/dL (7-17); CARBON DIOXIDE 21 mmol/L (22-30); GFR AFRICAN-AMERICAN > 60; GLUCOSE,RANDOM 71 mg/dL (65-105); TOTAL PROTEIN 7.4 g/dL (6.3-8.3)
[2017-05-04 07:44] LABS: CALCIUM 8.6 mg/dl (8.6-10.4)
[2017-05-04] MEDS ORDERED: Propofol 10 mg/ml Inj (20 ML) ONE (09:24)
[2017-05-04] MEDS ORDERED: Midazolam 2 MG/2 ML VIAL ONE (09:24)
[2017-05-04] MEDS ORDERED: Lactated Ringer's 1,000 ML IV ONE ×3 (09:28→10:30)
[2017-05-04] MEDS ORDERED: Neostigmine Methylsulfate 3mg/3ml Syringe IV ONE (10:30)
--- NOTE | 2017-05-04 10:48 | PCM.SURG1 ---
Surgeon's Initial Post Op Note - Surgeon's Notes Surgeon: Brennon Night Stocker: Jessi Pre-Operative Diagnosis: Cholelithiasis Operative Findings: fits ct butch, cholelithiasis, sludge Post-Operative Diagnosis: cholelithiasis Operation Performed: Laparoscopic cholecystectomy, lysis of adhesions Specimen/Specimens Removed: Gallbladder Estimated Blood Loss: EBL {In ML}: 10 Date of Surgery/Procedure: 05/04/17 Time of Surgery/Procedure: 09:45
[2017-05-04] MEDS ORDERED: HYDROmorphone 0.5 mg/0.5 ml ISec IVP PRN (10:49)
[2017-05-04] MEDS ORDERED: Morphine 4 MG/ML VIAL IVP PRN (10:50)
--- NOTE | 2017-05-04 11:54 | CP.PCM.PN ---
Subjective - Date & Time of Evaluation Date of Evaluation: 05/04/17 Time of Evaluation: 11:53 - Subjective Subjective: 41F s/p laparoscopic cholecystectomy. If patient is tolerating diet she can be discharged today on percocets. Follow up with Dr. Willett in 2 weeks. Objective - Vital Signs/Intake and Output Vital Signs (last 24 hours): Temp Pulse Resp BP Pulse Ox 98.4 F 77 13 131/69 100 05/04/17 10:46 05/04/17 11:16 05/04/17 11:16 05/04/17 11:16 05/04/17 11:16 Intake and Output: 05/04/17 05/04/17 06:59 18:59 Intake Total 100 Balance 100 - Medications Medications: Current Medications Acetaminophen/Butalbital/Caffeine (Fioricet) 1 tab PO TID PRN PRN Reason: Headache Albuterol Sulfate (Albuterol 0.083% Inhal Julissa (2.5 Mg/3 Ml) Ud) 2.5 mg INH RQ6 PRN PRN Reason: Shortness of Breath Amlodipine Besylate (Norvasc) 5 mg PO DAILY [facility] Last Admin: 05/03/17 09:00 Dose: 5 mg Hydromorphone HCl (Dilaudid) 0.5 mg IVP Q5M PRN PRN Reason: Pain, severe (8-10) Stop: 05/04/17 12:49 Sodium Chloride (Sodium Chloride 0.45%) 1,000 mls @ 100 mls/hr IV .Q10H [facility] Last Admin: 05/04/17 03:19 Dose: 100 mls/hr Piperacillin Sod/Tazobactam (Sod 3.375 gm/ Sodium Chloride) 100 mls @ 200 mls/ hr IVPB Q6H [facility] Last Admin: 05/04/17 09:32 Dose: 100 mls Lisinopril (Zestril) 10 mg PO DAILY [facility] Last Admin: 05/03/17 09:02 Dose: 10 mg Morphine Sulfate (Morphine) 4 mg IVP Q4 PRN PRN Reason: Pain, severe (8-10) Ondansetron HCl (Zofran Inj) 4 mg IVP Q6 PRN PRN Reason: Nausea/Vomiting Last Admin: 05/03/17 16:32 Dose: 4 mg Oxycodone/Acetaminophen (Percocet 5/325 Mg Tab) 1 tab PO Q4H PRN PRN Reason: Pain, moderate (4-7) Stop: 05/07/17 10:51 Pantoprazole Sodium (Protonix Inj) 40 mg IVP Q12H [facility] Last Admin: 05/03/17 23:37 Dose: 40 mg Pneumococcal Polyvalent Vaccine (Pneumovax 23 Vaccine) 0.5 ml IM .ONCE ONE Stop: 05/06/17 10:01 - Labs Labs: 05/04/17 07:19 05/04/17 07:19
[2017-05-04] MEDS: Oxycodone/Acetaminophen 5/325 mg Tab PO PRN ×2 (12:37→22:19)
--- NOTE | 2017-05-04 14:57 | CP.PCM.PN ---
<Elzbieta Azul - Last Filed: 05/04/17 19:02> Subjective - Date & Time of Evaluation Date of Evaluation: 05/04/17 Time of Evaluation: 07:10 - Subjective Subjective: PGY 1 Medicine Note- Dr. Chan's Service: Patient seen and examined at bedside this AM and PM. In AM patient reports diffuse abdominal discomfort. Last BM 05/01. Patient seen in PM after surgery. Mild abdominal discomfort. Had not had a BM, but was passing flatus. Tolerating liquids. No other acute complaints such as SOB or chest pain. Objective - Vital Signs/Intake and Output Vital Signs (last 24 hours): Temp Pulse Resp BP Pulse Ox 98.0 F 72 18 128/79 95 05/04/17 12:31 05/04/17 12:31 05/04/17 12:31 05/04/17 12:31 05/04/17 12:31 Intake and Output: 05/04/17 05/04/17 06:59 18:59 Intake Total 100 Balance 100 - Medications Medications: Current Medications Acetaminophen/Butalbital/Caffeine (Fioricet) 1 tab PO TID PRN PRN Reason: Headache Albuterol Sulfate (Albuterol 0.083% Inhal Julissa (2.5 Mg/3 Ml) Ud) 2.5 mg INH RQ6 PRN PRN Reason: Shortness of Breath Amlodipine Besylate (Norvasc) 5 mg PO DAILY [facility] Last Admin: 05/04/17 12:38 Dose: 5 mg Sodium Chloride (Sodium Chloride 0.45%) 1,000 mls @ 100 mls/hr IV .Q10H [facility] Last Admin: 05/04/17 03:19 Dose: 100 mls/hr Piperacillin Sod/Tazobactam (Sod 3.375 gm/ Sodium Chloride) 100 mls @ 200 mls/ hr IVPB Q6H [facility] Last Admin: 05/04/17 09:32 Dose: 100 mls Lisinopril (Zestril) 10 mg PO DAILY [facility] Last Admin: 05/04/17 12:39 Dose: 10 mg Morphine Sulfate (Morphine) 4 mg IVP Q4 PRN PRN Reason: Pain, severe (8-10) Ondansetron HCl (Zofran Inj) 4 mg IVP Q6 PRN PRN Reason: Nausea/Vomiting Last Admin: 05/03/17 16:32 Dose: 4 mg Oxycodone/Acetaminophen (Percocet 5/325 Mg Tab) 1 tab PO Q4H PRN PRN Reason: Pain, moderate (4-7) Stop: 05/07/17 10:51 Last Admin: 05/04/17 12:37 Dose: 1 tab Pantoprazole Sodium (Protonix Inj) 40 mg IVP Q12H [facility] Last Admin: 05/04/17 12:38 Dose: 40 mg Pneumococcal Polyvalent Vaccine (Pneumovax 23 Vaccine) 0.5 ml IM .ONCE ONE Stop: 05/06/17 10:01 - Labs Labs: 05/04/17 07:19 05/04/17 07:19 - Constitutional Appears: Non-toxic, No Acute Distress - Head Exam Head Exam: ATRAUMATIC, NORMAL INSPECTION, NORMOCEPHALIC - Eye Exam Eye Exam: EOMI, Normal appearance, PERRL - ENT Exam ENT Exam: Mucous Membranes Moist, Normal Exam - Respiratory Exam Respiratory Exam: Clear to Ausculation Bilateral, NORMAL BREATHING PATTERN. absent: Accessory Muscle Use, Wheezes, Respiratory Distress - Cardiovascular Exam Cardiovascular Exam: REGULAR RHYTHM, +S1, +S2. absent: Murmur - GI/Abdominal Exam GI & Abdominal Exam: Soft, Tenderness, Normal Bowel Sounds. absent: Distended, Firm, Guarding - Extremities Exam Extremities Exam: Normal Inspection. absent: Calf Tenderness - Back Exam Back Exam: NORMAL INSPECTION - Neurological Exam Neurological Exam: Alert, Awake, Oriented x3 - Psychiatric Exam Psychiatric exam: Normal Affect - Skin Skin Exam: Dry, Intact Additional comments: 3 surgical wounds covered, dry and intact from lap damian Assessment and Plan (1) Cholecystitis Assessment & Plan: s/p laparoscopic cholecystectomy 05/04 if tolerating diet will consider discharge tomorrow Zosyn 3.375 gm IVPB Q6 hours Zofran prn Morphine prn pain Status: Acute (2) UTI (urinary tract infection) Assessment & Plan: Urine culture 05/02 prelim gram negative rods Continue Zosyn Status: Acute (3) HTN (hypertension) Assessment & Plan: Lisinopril 10mg PO daily (home med) Amlodipine 5mg PO daily Monitor Status: Acute (4) History of asthma Assessment & Plan: Albuterol Q6H PRN SOB Status: Acute (5) Prophylactic measure Assessment & Plan: Protonix 40mg IVP Q12H S[facility]s Activity as tolerated Now advanced to regular diet Status: Acute <Neil Chan - Last Filed: 05/05/17 07:57> Objective - Vital Signs/Intake and Output Vital Signs (last 24 hours): Temp Pulse Resp BP Pulse Ox 98.1 F 85 18 111/65 99 05/05/17 00:00 05/05/17 00:00 05/05/17 00:00 05/05/17 00:00 05/05/17 00:00 - Medications Medications: Current Medications Acetaminophen/Butalbital/Caffeine (Fioricet) 1 tab PO TID PRN PRN Reason: Headache Albuterol Sulfate (Albuterol 0.083% Inhal Julissa (2.5 Mg/3 Ml) Ud) 2.5 mg INH RQ6 PRN PRN Reason: Shortness of Breath Amlodipine Besylate (Norvasc) 5 mg PO DAILY [facility] Last Admin: 05/04/17 12:38 Dose: 5 mg Sodium Chloride (Sodium Chloride 0.45%) 1,000 mls @ 100 mls/hr IV .Q10H [facility] Last Admin: 05/04/17 19:07 Dose: Not Given Piperacillin Sod/Tazobactam (Sod 3.375 gm/ Sodium Chloride) 100 mls @ 200 mls/ hr IVPB Q6H [facility] Last Admin: 05/05/17 03:27 Dose: 200 mls/hr Lisinopril (Zestril) 10 mg PO DAILY [facility] Last Admin: 05/04/17 12:39 Dose: 10 mg Morphine Sulfate (Morphine) 4 mg IVP Q4 PRN PRN Reason: Pain, severe (8-10) Ondansetron HCl (Zofran Inj) 4 mg IVP Q6 PRN PRN Reason: Nausea/Vomiting Last Admin: 05/03/17 16:32 Dose: 4 mg Oxycodone/Acetaminophen (Percocet 5/325 Mg Tab) 1 tab PO Q4H PRN PRN Reason: Pain, moderate (4-7) Stop: 05/07/17 10:51 Last Admin: 05/05/17 03:33 Dose: 1 tab Pantoprazole Sodium (Protonix Inj) 40 mg IVP Q12H [facility] Last Admin: 05/04/17 22:19 Dose: 40 mg Pneumococcal Polyvalent Vaccine (Pneumovax 23 Vaccine) 0.5 ml IM .ONCE ONE Stop: 05/06/17 10:01 - Labs Labs: 05/05/17 07:16 Attending/Attestation - Attestation I have personally seen and examined this patient.: Yes I have fully participated in the care of the patient.: Yes I have reviewed all pertinent clinical information, including history, physical exam and plan: Yes Notes (Text): 05/05/17 07:57 Patient was seen and examined at bedside with the resident She is status post cholecystectomy and she started on clear liquid diet. Patient is tolerating a diet We will advance her diet to solid at night and if the patient tolerates the diet today she will be discharged to home likely in the morning Surgical evaluation and follow-up seen and appreciated I discussed the plan of care with the resident and agree with the history and physical and assessment/plan by the resident.
--- NOTE | 2017-05-04 17:10 | OP ---
PROCEDURE DATE: 05/04/2017 SURGEON: Dr. Willett. HOSPITAL SECURITY OFFICER: Dr. Bowen. ANESTHESIA: General, YOUTH LIAISON OFFICER, DEVORAH Lutz. PREOPERATIVE DIAGNOSIS: Acute cholecystitis. POSTOPERATIVE DIAGNOSIS: Acute cholecystitis. PROCEDURE: Laparoscopic cholecystectomy. DESCRIPTION OF OPERATION: With the patient in the supine position under adequate general anesthesia, the abdomen was prepped and draped in the usual sterile manner. Veress needle puncture was performed at the umbilicus with insufflation to 15 cm water pressure of CO2, and a 10 mm laparoscopic trocar was inserted via an infraumbilical incision. Under direct vision, additional trocars were inserted in the epigastrium and right costal margin. There were noted to be moderate filmy [id number]-[id number]-Wtwviz type adhesions from the liver to the area of the diaphragm, and these were sharply lysed. The gallbladder was visualized. It was tensely distended, and it was aspirated of approximately 20 mL of clear white bile allowing the fundus to be grasped and elevated. The infundibular area was grasped and retracted laterally. The cystic duct was dissected and cleared down toward the junction with the common bile duct. The cystic duct was triply clipped and divided. The cystic artery was identified. The cystic artery was dissected and then triply clipped and divided. The gallbladder was dissected free of the liver bed using electrocautery. The liver bed was inspected for hemostasis, and the dissection was completed. The gallbladder was placed in a specimen retrieval bag and removed via the umbilical port site. The right upper quadrant was irrigated and suctioned. The pneumoperitoneum was released and, the trocars were removed. The umbilical port site was closed with a [id number] fascial suture of 0 Vicryl. All incisions were closed with 4-0 Monocryl subcuticular sutures and Steri-Strips. Dry sterile dressings were applied. The patient tolerated the procedure well and transferred to recovery room in stable condition. Estimated blood loss for the procedure was 10 mL. Brandon Willett MD cc: 58 TT: 05/04/2017 17:10:25 jn KRISTOFER
[2017-05-05] MEDS: Piperacillin/Tazobact 3.375 GM in Sodium Chloride 100 ML IVPB SCH ×3 (03:27→14:57)
[2017-05-05] MEDS: Oxycodone/Acetaminophen 5/325 mg Tab PO PRN (03:33)
[2017-05-05] MEDS: Sodium Chloride 0.45% 1,000 ML IV SCH (04:45)
[2017-05-05 07:33] LABS: BASO % 0.3 % (0.0-2.0); EOS % 0.1 % (0.0-4.0); HEMATOCRIT 32.5 % (34.0-47.0); LYMPH # 1.1 K/uL (1.0-4.3); MEAN CELL VOLUME 79.7 fL (81.0-99.0); MEAN CORPUSCULAR HEMOGLOBIN 26.2 pg (27.0-31.0); MEAN CORPUSCULAR HGB CONC 32.8 g/dL (33.0-37.0); MEAN PLATELET VOLUME 7.7 fL (7.2-11.7); MONO # 1.3 K/uL (0.0-0.8); MONO % 8.2 % (0.0-10.0); PLATELET COUNT 293 K/uL (130-400); RED CELL DISTRIBUTION WIDTH 13.6 % (11.5-14.5); WHITE BLOOD COUNT 15.7 K/uL (4.8-10.8)
[2017-05-05 08:27] LABS: CHLORIDE 106 mmol/L (98-107)
[2017-05-05 08:28] LABS: POTASSIUM 3.4 mmol/L (3.6-5.2); SODIUM 135 mmol/L (132-148)
[2017-05-05 08:30] LABS: GFR AFRICAN-AMERICAN > 60
[2017-05-05 08:31] LABS: ALB/GLOB RATIO 0.9 (1.0-2.1); ALKALINE PHOSPHATASE 61 U/L (38-126); ALT/SGPT 40 U/L (9-52); AST/SGOT 39 U/L (14-36); BILIRUBIN,TOTAL 0.6 mg/dL (0.2-1.3); BLOOD UREA NITROGEN 8 mg/dL (7-17); CARBON DIOXIDE 23 mmol/L (22-30); GLUCOSE,RANDOM 101 mg/dL (65-105); PHOSPHOROUS 2.3 mg/dL (2.5-4.5); TOTAL PROTEIN 6.3 g/dL (6.3-8.3)
[2017-05-05 08:32] LABS: CALCIUM 8.1 mg/dl (8.6-10.4); MAGNESIUM 1.9 mg/dL (1.6-2.3)
[2017-05-05 08:57] LABS: NEUTROPHIL 82 % (50-75); TOTAL CELLS COUNTED 100
--- NOTE | 2017-05-05 09:04 | CP.PCM.PN ---
Subjective - Date & Time of Evaluation Date of Evaluation: 05/05/17 Time of Evaluation: 09:01 - Subjective Subjective: Surgery: Dr. Willett Pt seen and examined. She states that she feels much better compared to yesterday. Tolerating diet. No N/V. No F/C. Objective - Vital Signs/Intake and Output Vital Signs (last 24 hours): Temp Pulse Resp BP Pulse Ox 98.1 F 85 18 111/65 99 05/05/17 00:00 05/05/17 00:00 05/05/17 00:00 05/05/17 00:00 05/05/17 00:00 - Medications Medications: Current Medications Acetaminophen/Butalbital/Caffeine (Fioricet) 1 tab PO TID PRN PRN Reason: Headache Albuterol Sulfate (Albuterol 0.083% Inhal Julissa (2.5 Mg/3 Ml) Ud) 2.5 mg INH RQ6 PRN PRN Reason: Shortness of Breath Last Admin: 05/05/17 07:55 Dose: 2.5 mg Amlodipine Besylate (Norvasc) 5 mg PO DAILY [facility] Last Admin: 05/04/17 12:38 Dose: 5 mg Sodium Chloride (Sodium Chloride 0.45%) 1,000 mls @ 100 mls/hr IV .Q10H [facility] Last Admin: 05/05/17 04:45 Dose: 100 mls/hr Piperacillin Sod/Tazobactam (Sod 3.375 gm/ Sodium Chloride) 100 mls @ 200 mls/ hr IVPB Q6H [facility] Last Admin: 05/05/17 03:27 Dose: 200 mls/hr Lisinopril (Zestril) 10 mg PO DAILY [facility] Last Admin: 05/04/17 12:39 Dose: 10 mg Morphine Sulfate (Morphine) 4 mg IVP Q4 PRN PRN Reason: Pain, severe (8-10) Ondansetron HCl (Zofran Inj) 4 mg IVP Q6 PRN PRN Reason: Nausea/Vomiting Last Admin: 05/03/17 16:32 Dose: 4 mg Oxycodone/Acetaminophen (Percocet 5/325 Mg Tab) 1 tab PO Q4H PRN PRN Reason: Pain, moderate (4-7) Stop: 05/07/17 10:51 Last Admin: 05/05/17 03:33 Dose: 1 tab Pantoprazole Sodium (Protonix Inj) 40 mg IVP Q12H [facility] Last Admin: 05/04/17 22:19 Dose: 40 mg Pneumococcal Polyvalent Vaccine (Pneumovax 23 Vaccine) 0.5 ml IM .ONCE ONE Stop: 05/06/17 10:01 - Labs Labs: 05/05/17 07:16 05/05/17 07:16 - Constitutional Appears: Non-toxic, No Acute Distress - Head Exam Head Exam: ATRAUMATIC, NORMOCEPHALIC - Eye Exam Eye Exam: EOMI - ENT Exam ENT Exam: Mucous Membranes Moist - Neck Exam Neck Exam: Full ROM - Respiratory Exam Respiratory Exam: NORMAL BREATHING PATTERN. absent: Accessory Muscle Use, Respiratory Distress - GI/Abdominal Exam GI & Abdominal Exam: Soft, Tenderness (mild shawn-incisional ). absent: Distended, Firm, Guarding, Rigid, Rebound - Extremities Exam Extremities Exam: absent: Calf Tenderness, Pedal Edema - Neurological Exam Neurological Exam: Alert, Awake, Oriented x3 - Psychiatric Exam Psychiatric exam: Normal Affect, Normal Mood Assessment and Plan - Assessment and Plan (Free Text) Assessment: 41F w. cholecystitis, s/p lap damian, POD#1 -Leukocytosis likely reactive from surgery -encourage OOB and ambulations -pt clear for D/C from surgical standpoint -f/u w. Dr. Willett in 1-2 weeks -d/w attending Zemaitis PGY2
--- NOTE | 2017-05-05 09:33 | CP.PCM.PN ---
Subjective - Date & Time of Evaluation Date of Evaluation: 05/05/17 Time of Evaluation: 07:00 Objective - Vital Signs/Intake and Output Vital Signs (last 24 hours): Temp Pulse Resp BP Pulse Ox 98.1 F 84 18 116/67 99 05/05/17 00:00 05/05/17 09:11 05/05/17 00:00 05/05/17 09:11 05/05/17 00:00 - Medications Medications: Current Medications Acetaminophen/Butalbital/Caffeine (Fioricet) 1 tab PO TID PRN PRN Reason: Headache Albuterol Sulfate (Albuterol 0.083% Inhal Julissa (2.5 Mg/3 Ml) Ud) 2.5 mg INH RQ6 PRN PRN Reason: Shortness of Breath Last Admin: 05/05/17 07:55 Dose: 2.5 mg Amlodipine Besylate (Norvasc) 5 mg PO DAILY [facility] Last Admin: 05/05/17 09:12 Dose: 5 mg Piperacillin Sod/Tazobactam (Sod 3.375 gm/ Sodium Chloride) 100 mls @ 200 mls/ hr IVPB Q6H [facility] Last Admin: 05/05/17 09:12 Dose: 200 mls/hr Lisinopril (Zestril) 10 mg PO DAILY [facility] Last Admin: 05/05/17 09:12 Dose: 10 mg Morphine Sulfate (Morphine) 4 mg IVP Q4 PRN PRN Reason: Pain, severe (8-10) Ondansetron HCl (Zofran Inj) 4 mg IVP Q6 PRN PRN Reason: Nausea/Vomiting Last Admin: 05/03/17 16:32 Dose: 4 mg Oxycodone/Acetaminophen (Percocet 5/325 Mg Tab) 1 tab PO Q4H PRN PRN Reason: Pain, moderate (4-7) Stop: 05/07/17 10:51 Last Admin: 05/05/17 03:33 Dose: 1 tab Pantoprazole Sodium (Protonix Inj) 40 mg IVP Q12H [facility] Last Admin: 05/05/17 09:12 Dose: 40 mg Pneumococcal Polyvalent Vaccine (Pneumovax 23 Vaccine) 0.5 ml IM .ONCE ONE Stop: 05/06/17 10:01 - Labs Labs: 05/05/17 07:16 05/05/17 07:16 Assessment and Plan (1) Cholecystitis Status: Acute (2) UTI (urinary tract infection) Status: Acute (3) HTN (hypertension) Status: Acute (4) History of asthma Status: Acute (5) Prophylactic measure Status: Acute
[2017-05-05 10:27] VITALS: RESP 20; O2SAT 97
[2017-05-05] MEDS ORDERED: Potassium Chloride 20 mEq ER Tab PO ONE ×2 (11:41→12:00)
[2017-05-05] MEDS ORDERED: Potassium & Sodium Phosphate PO ONE ×2 (11:42→12:00)
--- NOTE | 2017-05-05 14:04 | CP.PCM.DIS ---
<Elzbieta Azul - Last Filed: 05/05/17 19:54> Provider - Provider Date of Admission: 05/04/17 16:26 Attending physician: Neil Chan MD Primary care physician: Dr. Borja Consults: Dr. Willett (surgery) Time Spent in preparation of Discharge (in minutes): 45 Diagnosis - Discharge Diagnosis (1) Cholecystitis Status: Acute Comment: resolved, laparascopic cholecystectomy performed (2) UTI (urinary tract infection) Status: Acute Comment: patient to take cipro 500mg BID for 5 days after discharge (3) HTN (hypertension) Status: Acute Comment: stable, continue home medications (4) History of asthma Status: Acute Comment: stable Hospital Course - Lab Results Lab Results: Most Recent Lab Values WBC 15.7 K/uL (4.8-10.8) H 05/05/17 07:16 RBC 4.08 Mil/uL (3.80-5.20) 05/05/17 07:16 Hgb 10.7 g/dL (11.0-16.0) L 05/05/17 07:16 Hct 32.5 % (34.0-47.0) L 05/05/17 07:16 MCV 79.7 fL (81.0-99.0) L 05/05/17 07:16 MCH 26.2 pg (27.0-31.0) L 05/05/17 07:16 MCHC 32.8 g/dL (33.0-37.0) L 05/05/17 07:16 RDW 13.6 % (11.5-14.5) 05/05/17 07:16 Plt Count 293 K/uL (130-400) 05/05/17 07:16 MPV 7.7 fL (7.2-11.7) 05/05/17 07:16 Neut % (Auto) 84.4 % (50.0-75.0) H 05/05/17 07:16 Lymph % (Auto) 7.0 % (20.0-40.0) L 05/05/17 07:16 Robertson % (Auto) 8.2 % (0.0-10.0) 05/05/17 07:16 Eos % (Auto) 0.1 % (0.0-4.0) 05/05/17 07:16 Baso % (Auto) 0.3 % (0.0-2.0) 05/05/17 07:16 Neut # 13.2 K/uL (1.8-7.0) H 05/05/17 07:16 Lymph # 1.1 K/uL (1.0-4.3) 05/05/17 07:16 Robertson # 1.3 K/uL (0.0-0.8) H 05/05/17 07:16 Eos # 0.0 K/uL (0.0-0.7) 05/05/17 07:16 Baso # 0.0 K/uL (0.0-0.2) 05/05/17 07:16 Neutrophils % (Manual) 82 % (50-75) H 05/05/17 07:16 Lymphocytes % (Manual) 10 % (20-40) L 05/05/17 07:16 Monocytes % (Manual) 8 % (0-10) 05/05/17 07:16 Eosinophils % (Manual) 1 % (0-4) 05/02/17 09:50 Platelet Estimate Normal (NORMAL) 05/05/17 07:16 RBC Morphology Normal 05/02/17 09:50 Hypochromasia (manual) Slight 05/05/17 07:16 Poikilocytosis (manual Slight 05/05/17 07:16 Anisocytosis (manual) Slight 05/05/17 07:16 Sodium 135 mmol/L (132-148) 05/05/17 07:16 Potassium 3.4 mmol/L (3.6-5.2) L 05/05/17 07:16 Chloride 106 mmol/L (98-107) 05/05/17 07:16 Carbon Dioxide 23 mmol/L (22-30) 05/05/17 07:16 Anion Gap 9 (10-20) L 05/05/17 07:16 BUN 8 mg/dL (7-17) 05/05/17 07:16 Creatinine 0.8 MG/DL (0.7-1.2) 05/05/17 07:16 Est GFR ( Amer) > 60 05/05/17 07:16 Est GFR (Non-Af Amer) > 60 05/05/17 07:16 Random Glucose 101 mg/dL (65-105) 05/05/17 07:16 Calcium 8.1 mg/dl (8.6-10.4) L 05/05/17 07:16 Phosphorus 2.3 mg/dL (2.5-4.5) L 05/05/17 07:16 Magnesium 1.9 mg/dL (1.6-2.3) 05/05/17 07:16 Total Bilirubin 0.6 mg/dL (0.2-1.3) 05/05/17 07:16 AST 39 U/L (14-36) H D 05/05/17 07:16 ALT 40 U/L (9-52) 05/05/17 07:16 Alkaline Phosphatase 61 U/L (38-126) 05/05/17 07:16 Total Protein 6.3 g/dL (6.3-8.3) 05/05/17 07:16 Albumin 2.9 g/dL (3.5-5.0) L D 05/05/17 07:16 Globulin 3.4 gm/dL (2.2-3.9) 05/05/17 07:16 Albumin/Globulin Ratio 0.9 (1.0-2.1) L 05/05/17 07:16 Lipase 57 U/L (23-300) 05/02/17 09:50 Urine Color Yellow (YELLOW) 05/02/17 09:45 Urine Clarity Clear (Clear) 05/02/17 09:45 Urine pH 8.0 (5.0-8.0) 05/02/17 09:45 Ur Specific [place] 1.013 (1.003-1.030) 05/02/17 09:45 Urine Protein Negative mg/dL (NEGATIVE) 05/02/17 09:45 Urine Glucose (UA) Normal mg/dL (Normal) 05/02/17 09:45 Urine Ketones Negative mg/dL (NEGATIVE) 05/02/17 09:45 Urine Blood Negative (NEGATIVE) 05/02/17 09:45 Urine Nitrate Negative (NEGATIVE) 05/02/17 09:45 Urine Bilirubin Negative (NEGATIVE) 05/02/17 09:45 Urine Urobilinogen Normal mg/dL (0.2-1.0) 05/02/17 09:45 Ur Leukocyte Esterase Neg Stephen/uL (Negative) 05/02/17 09:45 Urine WBC (Auto) 7 /hpf (0-5) H 05/02/17 09:45 Urine RBC (Auto) 3 /hpf (0-3) 05/02/17 09:45 Ur Squamous Epith Cells 3 /hpf (0-5) 05/02/17 09:45 Urine HCG, Qual Negative (NEGATIVE) 05/04/17 04:27 - Hospital Course Hospital Course: As per H&P "CC: "my stomach really hurts" Patient is a 41 year old female with PMHx of GERD, asthma, HTN and anemia presenting for intractable abdominal pain, nausea and vomiting. Patient says she woke up at 3am with 9/10, burning "gas pain." She put baking soda in warm water which she says usually helps her. She drank this, but it did not help. She tried prilosec and pepto bismol but neither helped. The pain started radiating up into her chest. Patient decided to come to ER around 7 am because the pain would not go away and kept getting worse. Patient also began to feel nauseous. Patient vomited four times in ER; last time was 2-3 hours ago. Vomit was food colored and the last one was greenish like bile. Patient had fried chicken and a beef justin last night at 9pm for dinner. No one else had the same food as her. Patient reports being very thirsty now. Patient also reports being constipated for 3 days, but had a small bowel movement this AM. Patient denies fever, chills, diaphoresis, weakness, headache, vision change, sore throat, CP, palpitations, cough, SOB, hematemesis, diarrhea, hematochezia, melena, dysuria, dyspareunia, back pain, rash, recent travel, sick contacts, weight change." Patient admitted for cholecystitis after abdominal/pelvis CT showed "interval development of moderate pericholecystic fluid, distended gallbladder and suspect noncalcified cholelithiasis. Findings are concerning for acute calculus cholecystitis." on 05/03. Dr. Willett performed a laparascopic cholecystectomy on 05/04. Patient also found to have e. coli in the urine on 05/02. Patient continued on home medications for chronic HTN. Patient stable for discharge as per Dr. Chan. Patient should resume all home medications. Patient should additionally take the medications below as prescribed: Ciprofloxacin 500mg PO BID for 5 days. Patient should make follow up appointment with primary doctor, Dr. Borja within 1 week of discharge for post hospital follow up. Patient should make follow up appointment with surgeon, Dr. Willett within 1 week for post lap damian. This is only a summary of the hospital course. See chart for full details. Discharge Exam - Head Exam Head Exam: ATRAUMATIC, NORMOCEPHALIC - Eye Exam Eye Exam: EOMI, Normal appearance, PERRL - ENT Exam ENT Exam: Mucous Membranes Moist - Neck Exam Neck exam: Full Rom, Normal Inspection - Respiratory Exam Respiratory Exam: NORMAL BREATHING PATTERN. absent: Rales, Rhonchi, Wheezes, Respiratory Distress, Stridor - Cardiovascular Exam Cardiovascular Exam: REGULAR RHYTHM, RRR, +S1, +S2. absent: Gallop, Rubs - GI/Abdominal Exam GI & Abdominal Exam: Normal Bowel Sounds. absent: Firm, Guarding Additional comments: dressing clean, intact - Extremities Exam Extremities exam: full ROM - Back Exam Back exam: NORMAL INSPECTION - Neurological Exam Neurological exam: Alert, CN II-XII Intact, Oriented x3 - Psychiatric Exam Psychiatric exam: Normal Affect, Normal Mood - Skin Skin Exam: Normal Color Discharge Plan - Discharge Medications Prescriptions: Ciprofloxacin HCl [Cipro] 500 mg PO BID #10 tablet - Follow Up Plan Condition: STABLE Disposition: HOME/ ROUTINE Instructions: Ciprofloxacin (By mouth), How to Stop Smoking (DC), Cholecystitis (DC), Gallstones (DC), Urinary Tract Infection in Women (DC), Cigarette Smoking and Your Health (GEN), Laparoscopic Cholecystectomy (DC), Chronic Hypertension (DC) Additional Instructions: Discharge patient to home as per Dr. Chan. Please resume all home medications. Please take the following new medication as prescribed: Ciprofloxacin 500mg by mouth twice a day for 5 days. 1) Follow up with surgeon, Dr. Willett, in 2 weeks 2) Take bandage off in 2 days, steri-strips will come off on their own 3) Can shower, but no bath 4) No heavy lifting Please follow up with primary care doctor within 1 week of discharge. Return to emergency room if symptoms return or worsen. Instructions explained to patient who understands and agrees. Referrals: Brandon Willett MD [Staff Provider] - Yasmin Vaughn MD [Medical Doctor] - <Neil Chan - Last Filed: 05/06/17 17:08> Provider - Provider Date of Admission: 05/04/17 16:26 Attending physician: Neil Chan MD Hospital Course - Lab Results Lab Results: Most Recent Lab Values WBC 15.7 K/uL (4.8-10.8) H 05/05/17 07:16 RBC 4.08 Mil/uL (3.80-5.20) 05/05/17 07:16 Hgb 10.7 g/dL (11.0-16.0) L 05/05/17 07:16 Hct 32.5 % (34.0-47.0) L 05/05/17 07:16 MCV 79.7 fL (81.0-99.0) L 05/05/17 07:16 MCH 26.2 pg (27.0-31.0) L 05/05/17 07:16 MCHC 32.8 g/dL (33.0-37.0) L 05/05/17 07:16 RDW 13.6 % (11.5-14.5) 05/05/17 07:16 Plt Count 293 K/uL (130-400) 05/05/17 07:16 MPV 7.7 fL (7.2-11.7) 05/05/17 07:16 Neut % (Auto) 84.4 % (50.0-75.0) H 05/05/17 07:16 Lymph % (Auto) 7.0 % (20.0-40.0) L 05/05/17 07:16 Robertson % (Auto) 8.2 % (0.0-10.0) 05/05/17 07:16 Eos % (Auto) 0.1 % (0.0-4.0) 05/05/17 07:16 Baso % (Auto) 0.3 % (0.0-2.0) 05/05/17 07:16 Neut # 13.2 K/uL (1.8-7.0) H 05/05/17 07:16 Lymph # 1.1 K/uL (1.0-4.3) 05/05/17 07:16 Robertson # 1.3 K/uL (0.0-0.8) H 05/05/17 07:16 Eos # 0.0 K/uL (0.0-0.7) 05/05/17 07:16 Baso # 0.0 K/uL (0.0-0.2) 05/05/17 07:16 Neutrophils % (Manual) 82 % (50-75) H 05/05/17 07:16 Lymphocytes % (Manual) 10 % (20-40) L 05/05/17 07:16 Monocytes % (Manual) 8 % (0-10) 05/05/17 07:16 Eosinophils % (Manual) 1 % (0-4) 05/02/17 09:50 Platelet Estimate Normal (NORMAL) 05/05/17 07:16 RBC Morphology Normal 05/02/17 09:50 Hypochromasia (manual) Slight 05/05/17 07:16 Poikilocytosis (manual Slight 05/05/17 07:16 Anisocytosis (manual) Slight 05/05/17 07:16 Sodium 135 mmol/L (132-148) 05/05/17 07:16 Potassium 3.4 mmol/L (3.6-5.2) L 05/05/17 07:16 Chloride 106 mmol/L (98-107) 05/05/17 07:16 Carbon Dioxide 23 mmol/L (22-30) 05/05/17 07:16 Anion Gap 9 (10-20) L 05/05/17 07:16 BUN 8 mg/dL (7-17) 05/05/17 07:16 Creatinine 0.8 MG/DL (0.7-1.2) 05/05/17 07:16 Est GFR ( Amer) > 60 05/05/17 07:16 Est GFR (Non-Af Amer) > 60 05/05/17 07:16 Random Glucose 101 mg/dL (65-105) 05/05/17 07:16 Calcium 8.1 mg/dl (8.6-10.4) L 05/05/17 07:16 Phosphorus 2.3 mg/dL (2.5-4.5) L 05/05/17 07:16 Magnesium 1.9 mg/dL (1.6-2.3) 05/05/17 07:16 Total Bilirubin 0.6 mg/dL (0.2-1.3) 05/05/17 07:16 AST 39 U/L (14-36) H D 05/05/17 07:16 ALT 40 U/L (9-52) 05/05/17 07:16 Alkaline Phosphatase 61 U/L (38-126) 05/05/17 07:16 Total Protein 6.3 g/dL (6.3-8.3) 05/05/17 07:16 Albumin 2.9 g/dL (3.5-5.0) L D 05/05/17 07:16 Globulin 3.4 gm/dL (2.2-3.9) 05/05/17 07:16 Albumin/Globulin Ratio 0.9 (1.0-2.1) L 05/05/17 07:16 Lipase 57 U/L (23-300) 05/02/17 09:50 Urine Color Yellow (YELLOW) 05/02/17 09:45 Urine Clarity Clear (Clear) 05/02/17 09:45 Urine pH 8.0 (5.0-8.0) 05/02/17 09:45 Ur Specific [place] 1.013 (1.003-1.030) 05/02/17 09:45 Urine Protein Negative mg/dL (NEGATIVE) 05/02/17 09:45 Urine Glucose (UA) Normal mg/dL (Normal) 05/02/17 09:45 Urine Ketones Negative mg/dL (NEGATIVE) 05/02/17 09:45 Urine Blood Negative (NEGATIVE) 05/02/17 09:45 Urine Nitrate Negative (NEGATIVE) 05/02/17 09:45 Urine Bilirubin Negative (NEGATIVE) 05/02/17 09:45 Urine Urobilinogen Normal mg/dL (0.2-1.0) 05/02/17 09:45 Ur Leukocyte Esterase Neg Stephen/uL (Negative) 05/02/17 09:45 Urine WBC (Auto) 7 /hpf (0-5) H 05/02/17 09:45 Urine RBC (Auto) 3 /hpf (0-3) 05/02/17 09:45 Ur Squamous Epith Cells 3 /hpf (0-5) 05/02/17 09:45 Urine HCG, Qual Negative (NEGATIVE) 05/04/17 04:27 Attending/Attestation - Attestation I have personally seen and examined this patient.: Yes I have fully participated in the care of the patient.: Yes I have reviewed all pertinent clinical information, including history, physical exam and plan: Yes Notes (Text): 05/06/17 17:07 Patient was seen and examined at bedside She denies any abdominal pain. Patient is tolerating diet She is clear for discharge We will discharge the patient from She'll follow with surgery in 2-3 days. I agree with the discharge note by the resident.
[2017-05-05 16:00] VITALS: BP 131/69; PULSE 76; TEMP 98.3
--- NOTE | 2017-05-05 21:35 | CARD ---
APPROVED REPORT EKG Measurement Heart [id number] <Conclusion> Normal sinus rhythm Minimal voltage criteria for LVH, may be normal variant Borderline ECG
[2017-05-06] MEDS ORDERED: Pneumococcal 23-Valent Vaccine IM ONE (10:00)
== END 2017-05-05 16:55 | disposition home or self-care (01) | DRG 493 ==
LOC: C.ER 08:53 → C.9E 14:56 → C.5T 15:43 → OBSVTOIN 05-04 16:26
PROVIDERS: ADMIT Internal Medicine; ATTEND Internal Medicine
PROC: 0FT44ZZ Resection of Gallbladder, Percutaneous Endoscopic Approach (ICD-10-PCS; principal; 2017-05-04 14:30)
DX: K80.00 Calculus of gallbladder with acute cholecystitis without obstruction (principal); N39.0 Urinary tract infection, site not specified; A08.4 Viral intestinal infection, unspecified; I10 Essential (primary) hypertension; J45.909 Unspecified asthma, uncomplicated; F17.210 Nicotine dependence, cigarettes, uncomplicated; K29.70 Gastritis, unspecified, without bleeding; K21.9 Gastro-esophageal reflux disease without esophagitis

== ENCOUNTER 2017-11-24 10:38 | Emergency (ER) | payer MEDICAID, OTHER ==
[2017-11-24 10:38] VITALS: BMI 20.3
[2017-11-24 10:53] VITALS: TEMP 98.7
[2017-11-24] MEDS ORDERED: Lidocaine 5% Patch TD STA (11:25)
--- NOTE | 2017-11-24 11:25 | C.PDOC ---
History Of Present Illness Heidi Toussaint is a 42 year old female, with a past medical history of hypertension and asthma, who presents to the emergency department complaining of a constant left shoulder pain onset since 3am today. Patient states she was fine yesterday night when she went to bed, but around 3am she woke up with severe pain to the neck, left side upper back radiating to shoulder and arm. She denies any trauma. Patient rates the pain 10/10, constant with movement of arm, no associated redness or swelling. Patient has trigger points of pain along medial aspect of scapula on left side. She denies any fever, chills, nausea, vomit or trauma. PMD: Yaneth Borja Time Seen by Provider: 11/24/17 11:16 Chief Complaint (Nursing): Upper Extremity Problem/Injury History Per: Patient History/Exam Limitations: no limitations Onset/Duration Of Symptoms: Hrs (x9) Current Symptoms Are (Timing): Still Present Quality: "Pain" Severity: Severe Pain Scale Rating Of: 10 Exacerbating Factor(s): Movement Past Medical History Reviewed: Historical Data, Nursing Documentation, Vital Signs Vital Signs: Last Vital Signs Temp 98.7 F 11/24/17 10:52 Pulse 90 11/24/17 10:52 Resp 20 11/24/17 10:52 BP 144/89 11/24/17 10:52 Pulse Ox 100 11/24/17 12:43 - Medical History PMH: Asthma, HTN Denies: Chronic Kidney Disease Surgical History: Cholecystectomy - [facility] RESECTION OF GALLBLADDER, PERCUTANEOUS ENDOSCOPIC APPROACH (05/04/17) Family History: States: CAD, Diabetes, Hypertension - Social History Hx Tobacco Use: Yes Hx Alcohol Use: Yes Hx Substance Use: No - Immunization History Hx Tetanus Toxoid Vaccination: No Hx Influenza Vaccination: No Hx Pneumococcal Vaccination: No Review Of Systems Except As Marked, All Systems Reviewed And Found Negative. Constitutional: Negative for: Fever, Chills Gastrointestinal: Negative for: Nausea, Vomiting Musculoskeletal: Positive for: Neck Pain, Shoulder Pain (neck pain radiating to left upper back and to shoulder and arm. ), Back Pain Physical Exam - Physical Exam Skin: Normal Color, Warm, Dry Head: Atraumatic Eye(s): bilateral: Normal Inspection Neck: Normal ROM, Supple Cardiovascular: Rhythm Regular, No Murmur Respiratory: Normal Breath Sounds, No Accessory Muscle Use, No Wheezing Extremity: No Normal ROM, Tenderness (to palpaation anywhere on shoulder but starts at the base of sternum to SCM muscle radiates to shoulder and back), No Deformity, No Swelling (redness ) ED Course And Treatment O2 Sat by Pulse Oximetry: 100 (RA) Pulse Ox Interpretation: Normal Medical Decision Making Medical Decision Making: Initial Impression: Shoulder pain Initial Plan: --Flexeril 10 mg PO --Lidoderm 1 ea TD --Motrin tab 600 mg PO --Tylenol 325 mg tab 975 mg PO --reevaluation Disposition Counseled Patient/Family Regarding: Diagnosis, Need For Followup, Rx Given - Disposition Referrals: [facility] [Outside] Disposition: HOME/ ROUTINE Disposition Time: 12:54 Condition: STABLE Prescriptions: Cyclobenzaprine [Cyclobenzaprine HCl] 10 mg PO BID #6 tab Ibuprofen [Motrin] 600 mg PO TID #15 tab Lidocaine 5% [Lidoderm] 1 ea TD DAILY #2 patch Instructions: Muscle Spasm (ED) Forms: [facility] (Slovenian), General Discharge Instructions, Work Excuse - POA Present On Arrival: None - Clinical Impression Clinical Impression: Muscle strain - Scribe Statement John Rowley Provider Attestation: All medical record entries made by the Scribe were at my direction and personally dictated by me. I have reviewed the chart and agree that the record accurately reflects my personal performance of the history, physical exam, medical decision making, and the department course for this patient. I have also personally directed, reviewed, and agree with the discharge instructions and disposition.
[2017-11-24] MEDS ORDERED: Lidocaine 5% Patch TD ONE (11:29)
[2017-11-24 13:06] VITALS: BP 122/74; PULSE 68; RESP 16; O2SAT 98
== END 2017-11-24 13:05 | disposition home or self-care (01) ==
LOC: C.ER 10:38
DX: S46.812A Strain of other muscles, fascia and tendons at shoulder and upper arm level, left arm, initial encounter (principal); X58.XXXA Exposure to other specified factors, initial encounter